=== PATIENT | male | born 1975 | race Caucasian/White ===

== ENCOUNTER 2023-09-18 10:27 | Day surgery (SDC) | payer BC ==
[2023-09-16 11:26] LABS: ALBUMIN 4.2 G/DL (3.4-5.0); ALBUMIN/GLOBULIN RATIO 1.2 (1.1-1.5); ALKALINE PHOSPHATASE 63 IU/L (46-116); BLOOD UREA NITROGEN 15 MG/DL (7-18); BUN/CREATININE RATIO 17.9 (10.0-20.0); CALCIUM 9.1 MG/DL (8.5-10.1); CHLORIDE 107 MMOL/L (99-107); CREATININE 0.84 MG/DL (0.60-1.10); PRE OP ALT 29 U/L (30-65); PRE OP ANION GAP 5 (8-16); PRE OP AST 20 U/L (10-37); PRE OP BILIRUB, TOTAL 0.7 MG/DL (0.0-1.0); PRE OP GLUCOSE 116 MG/DL (70-104); PRE OP POTASSIUM 4.2 MMOL/L (3.4-5.1); PRE OP SODIUM 141 MMOL/L (135-145); TOTAL PROTEIN 7.7 G/DL (6.4-8.2); eGFR > 90 ML/MIN
[2023-09-16 11:34] LABS: BASOPHILS # (AUTO) 0.1 X10'3 (0-0.2); EOSINOPHILS # (AUTO) 0.2 X10'3 (0-0.9); EOSINOPHILS % (AUTO) 2.5 % (0-6); LYMPHOCYTES # (AUTO) 1.8 X10'3 (1.1-4.8); LYMPHOCYTES % (AUTO) 30.1 % (21-51); MEAN CORPUSCULAR HEMOGLOBIN 31.2 PG (27.0-31.0); MEAN CORPUSCULAR HGB CONC 34.4 g/dL (33.0-36.5); MEAN CORPUSCULAR VOLUME 90.7 FL (78-98); MONOCYTES # (AUTO) 0.5 X10'3 (0-0.9); MONOCYTES % (AUTO) 8.6 % (2-12); NEUTROPHILS # (AUTO) 3.5 X10'3 (1.8-7.7); NEUTROPHILS % (AUTO) 57.8 % (42-75); PRE OP HEMATOCRIT 51.1 % (42.0-52.0); PRE OP HEMOGLOBIN 17.6 g/dL (14.0-17.9); PRE OP PLATELET COUNT 326 X10'3 (140-440); PRE OP WHITE BLOOD COUNT 6.1 10'3 (4.8-10.8); RED BLOOD COUNT 5.63 X10'6 (4.70-6.10); RED CELL DISTRIBUTION WIDTH 13.3 % (11.5-14.5)
[2023-09-16 11:45] LABS: BILIRUBIN,URINE NEGATIVE (Neg); CLARITY,URINE CLEAR (Clear); COLOR,URINE YELLOW (Yellow); GLUCOSE, URINE NEGATIVE (Neg); KETONES,URINE NEGATIVE (Neg); LEUKOCYTE ESTERASE ,URINE NEGATIVE (Neg); OCCULT BLOOD,URINE SMALL (Neg); PROTEIN,URINE NEGATIVE (Neg); UROBILINOGEN,URINE 0.2 E.U/dL (0.2-1.0)
[2023-09-16 11:47] LABS: UA COLLECTION TYPE CLN CATCH MIDSTREAM
[2023-09-16 11:48] LABS: NITRITES, URINE NEGATIVE (Neg)
[2023-09-16 12:16] LABS: BACTERIA,URINE FEW /HPF (Neg); SQUAMOUS EPITHELIAL CELL,UR NONE SEEN /LPF (FEW); WBC,URINE 0-4 /HPF (0-4)
[2023-09-16 12:17] LABS: MUCUS STRANDS MODERATE /LPF (Neg)
[2023-09-18] VITALS (11 sets, daily range): BP systolic 101–121; BP diastolic 64–84; PULSE 58–71; RESP 8–16; TEMP 97.6; O2SAT 95–100
[~2023-09-18] VITALS: Ht 182.9 cm; Wt 98.2 kg
[2023-09-18] MEDS: cefazolin 2gm/D5W 100mL 100 ML IV ONE (05:30)
[~2023-09-18 10:27] MED LIST: NO HOME MEDS
[2023-09-18] MEDS: famotidine 20mg tablet PO ONE (10:46)
[2023-09-18] MEDS: ringers solution, lacted 1,000 ML IV SCH (10:47)
[2023-09-18] MEDS ORDERED: BUPIVAcaine/PF 2.5mg/ml (0.25%) 10ml vial ONE (13:42)
[2023-09-18] MEDS ORDERED: midazolam 1 mg/ML 2ml injection ONE (15:01)
[2023-09-18] MEDS ORDERED: fentaNYL/PF 50MCG/1 ML 2ML syringe ONE (15:01)
[2023-09-18] MEDS ORDERED: propofol inj 20 ML IV ONE (15:01)
[2023-09-18] MEDS ORDERED: rocuronium 10mg/ml inj IV ONE (15:01)
[2023-09-18] MEDS ORDERED: LIDOcaine 2% (20mg/ml) 5ml vial ONE (15:14)
[2023-09-18] MEDS ORDERED: sevoflurane 250ml liquid IH ONE (15:14)
[2023-09-18] MEDS ORDERED: dexamethasone sod phosphate 4mg/ml inj. ONE (15:32)
[2023-09-18] MEDS ORDERED: ringers solution, lacted 1,000 ML IV SCH (15:50)
[2023-09-18] MEDS ORDERED: proCHLORperazine 10 MG/2 ml inj IV PRN (15:50)
[2023-09-18] MEDS ORDERED: morphine 4 MG/ML inj SYRINge IV PRN (15:50)
[2023-09-18] MEDS ORDERED: meperidine/PF 25mg/ml syringe IV PRN ×2 (15:50)
[2023-09-18] MEDS ORDERED: ondansetron/PF 4mg/2ml inj IV PRN (15:50)
[2023-09-18] MEDS: BUPIVAcaine 0.25% w/Epi /PF 30ml vial IJ ONE (16:04)
[2023-09-18] MEDS ORDERED: glycopyrrolate 0.2mg/ml inj ONE (16:13)
[2023-09-18] MEDS ORDERED: ondansetron/PF 4mg/2ml inj ONE (16:13)
[2023-09-18] MEDS ORDERED: neostigmine methylsulfate 1 MG/ML 10ml vial ONE (16:13)
[2023-09-18] MEDS ORDERED: bacitracin 15gm ointment TP ONE (16:17)
[2023-09-18] MEDS: meperidine/PF 25mg/ml syringe IV PRN (16:40)
[2023-09-18] MEDS: morphine 2 MG/ML inj. syringe IV PRN (17:27)
[2023-09-18] MEDS ORDERED: HYDROcodone/acetaminophen 5mg/325mg tablet PO ONE (17:55)
== END 2023-09-18 17:58 | disposition home or self-care (01) ==
LOC: PAS 10:27
PROVIDERS: ATTEND Surgery
DX: K80.10 Calculus of gallbladder with chronic cholecystitis without obstruction (principal); K42.9 Umbilical hernia without obstruction or gangrene; K21.9 Gastro-esophageal reflux disease without esophagitis; Z85.828 Personal history of other malignant neoplasm of skin; Z98.890 Other specified postprocedural states; Z79.899 Other long term (current) drug therapy
CPT/HCPCS: 36415; 47562; 49591; 80053; 81001; 82948; 85025; 93005; J0690; J1100; J2175; J2250; J2270; J2405; J2704; J2710; J3010; J3490; J7030; J7120; S0020; Z7506; Z7508; Z7512; A4215; A4618; A7000